=== PATIENT | female | born 1990 | race Caucasian/White ===

== ENCOUNTER 2018-08-08 16:04 | Emergency (ER) | payer MEDICAID ==
[~2018-08-08] VITALS: Ht 172.7 cm; Wt 56.4 kg
[2018-08-08 16:30] VITALS: BP 127/86; Ht 172.7 cm; Wt 56.4 kg
[2018-08-08] MEDS ORDERED: PAMELOR 25 MG C25 MG (16:31)
[2018-08-08] MEDS ORDERED: PHENADOZ12.5 MG/SU (16:31)
== END 2018-08-08 17:38 | disposition left against medical advice (07) ==
LOC: D.ER 16:04
DX: S10.96XA Insect bite of unspecified part of neck, initial encounter (principal); X58.XXXA Exposure to other specified factors, initial encounter; Y93.9 Activity, unspecified; Y92.9 Unspecified place or not applicable

== ENCOUNTER 2018-08-23 14:07 | Emergency (ER) | payer MEDICAID ==
[~2018-08-23] VITALS: Ht 172.7 cm; Wt 56.8 kg
[~2018-08-23 14:07] MED LIST: PAMELOR 25 MG C25 MG; PHENADOZ12.5 MG/SU
[2018-08-23 14:46] LABS: BASOPHILS 0.1 % (0-2); EOSINOPHILS 1.6 % (0-7); HEMATOCRIT 38.4 % (36.0-48.0); IMMATURE GRANULOCYTES 0.1 % (0-5); LYMPHOCYTES 36.1 % (15-50); MCH 31.2 pg (26.0-34.0); MCHC 33.9 g/dL (31.0-37.0); MCV 92.1 fL (80.0-100.0); MEAN PLATELET VOLUME 9.3 fL (7.4-10.4); MONOCYTES 6.8 % (2-11); NEUTROPHILS 55.3 % (40-80); PLATELET COUNT 172 10x3/uL (130-400); RBC 4.17 10x6/uL (4.00-5.40); RDW 13.2 % (11.5-14.5); WBC 6.8 10x3/uL (4.8-10.8)
[2018-08-23 15:05] LABS: ALKALINE PHOSPHATASE 56 U/L (46-116); ALT (SGPT) 27 U/L (10-68); BILIRUBIN - TOTAL 0.28 mg/dL (0.2-1.3); CALC OSMOLALITY 277 mosm/kg (275-300); CALCIUM 8.6 mg/dL (8.5-10.1); CARBON DIOXIDE 21.3 mmol/L (21.0-32.0); CHLORIDE - SERUM 104 mmol/L (98-107); CREATININE - SERUM 0.9 mg/dL (0.6-1.3); GLUCOSE 120 mg/dL (74-106); PROTEIN - SERUM 7.2 g/dL (6.4-8.2); SODIUM 140 mmol/L (136-145); UREA NITROGEN 6 mg/dL (7-18); eGFR NON AFRICAN AMERICAN 79 mL/min (90-120)
[2018-08-23 15:07] VITALS: Ht 172.7 cm; Wt 56.8 kg
[2018-08-23 15:35] LABS: APPEARANCE CLEAR (CLEAR); BILIRUBIN NEGATIVE (NEGATIVE); COLOR YELLOW (YELLOW); GLUCOSE NEGATIVE (NEGATIVE); KETONE NEGATIVE (NEGATIVE); NITRITE NEGATIVE (NEGATIVE); PROTEIN NEGATIVE (NEGATIVE); UROBILINOGEN NORMAL (NORMAL)
[2018-08-23] MEDS ORDERED: TENORMIN25 MG PO (15:52)
[2018-08-23 16:24] VITALS: BP 133/73
== END 2018-08-23 16:24 | disposition home or self-care (01) ==
LOC: D.ER 14:07
PROVIDERS: Emergency Medicine
DX: R00.0 Tachycardia, unspecified (principal); G40.909 Epilepsy, unspecified, not intractable, without status epilepticus

== ENCOUNTER 2018-12-27 14:48 | Emergency (ER) | payer MEDICAID ==
[~2018-12-27] VITALS: Ht 172.7 cm; Wt 53.7 kg
[~2018-12-27 14:48] MED LIST changes: +TENORMIN25 MG PO
[2018-12-27 15:03] VITALS: Ht 172.7 cm; Wt 53.7 kg
[2018-12-27] MEDS ORDERED: DILANTIN100 MG PO (15:06)
[2018-12-27] MEDS ORDERED: NEO-SYNEPHRINE15 M2 NASAL (15:50)
[2018-12-27] MEDS ORDERED: MEDROL DOSE PACK4 MG PO (15:50)
[2018-12-27 16:44] VITALS: BP 105/73
== END 2018-12-27 16:41 | disposition home or self-care (01) ==
LOC: D.ER 14:48
DX: H65.193 Other acute nonsuppurative otitis media, bilateral (principal); G40.909 Epilepsy, unspecified, not intractable, without status epilepticus; F17.200 Nicotine dependence, unspecified, uncomplicated